=== PATIENT | female | born 1980 | race Caucasian/White ===

== ENCOUNTER 2018-10-06 20:37 | Observation (INO) | payer MEDICAID ==
[~2018-10-06] VITALS: Ht 172.7 cm; Wt 88.5 kg
[2018-10-06 21:00] LABS: BILIRUBIN,URINE NEGATIVE (NEG); CLARITY,URINE CLEAR; COLOR,URINE ORANGE; NITRITE,URINE POSITIVE (NEG); PROTEIN,URINE NEGATIVE (NEG-TRACE)
[2018-10-06 21:13] LABS: BACTERIA,URINE MANY /HPF (0-FEW); RBC,URINE OCC /HPF (0-2); SQUAMOUS EPITHELIAL CELL,UR FEW /LPF; WBC,URINE TNTC /HPF (0-4)
[2018-10-06] MEDS ORDERED: fentaNYL PF VIAL 100 MCG/2 ML VIAL IV ONE (22:00)
[2018-10-06] MEDS ORDERED: cefTRIAXone IV Push 1 GM VIAL. IVP ONE (22:00)
[2018-10-06] MEDS ORDERED: IV NORMAL SALINE 1000ML BAG 1,000 ML IV ONE (22:00)
[2018-10-06 22:26] LABS: BASO # 0.1 x10^3/uL (0.0-0.2); BASO % 2 % (0-3); EOS # 0.2 x10^3/uL (0.0-0.7); EOS % 2 % (0-3); HEMATOCRIT 38.5 % (36.0-47.0); HEMOGLOBIN 13.2 g/dL (12.0-15.5); LYMPH # 2.8 x10^3/uL (1.0-4.8); LYMPH % 28 % (24-48); MEAN CORPUSCULAR HEMOGLOBIN 30 pg (25-35); MEAN CORPUSCULAR HGB CONC 34 g/dL (31-37); MEAN CORPUSCULAR VOLUME 86 fL (79-100); MONO # 0.7 x10^3/uL (0.0-1.1); MONO % 7 % (0-9); NEUT # 6.2 x10^3uL (1.8-7.7); NEUT % 62 % (31-73); PLATELET COUNT 256 x10^3/uL (140-400); RED BLOOD COUNT 4.48 x10^6/uL (3.50-5.40); RED CELL DISTRIBUTION WIDTH 12.7 % (11.5-14.5)
[2018-10-06 22:34] LABS: CALCIUM 8.8 mg/dL (8.5-10.1); CREATININE 0.6 mg/dL (0.6-1.0); GFR 111.9; POTASSIUM 4.2 mmol/L (3.5-5.1)
--- NOTE | 2018-10-06 22:38 | PHYS DOC ---
Past Medical History Past Medical History: No Pertinent History Additional Past Medical Histor: heart blockage Past Surgical History: Alcohol Use: None Drug Use: None Adult General Chief Complaint Chief Complaint: PAIN ON URINATION HPI HPI 37-year-old female presents to ER via POV with complaints of urinary symptoms which started today. Patient reports she has had dysuria and states she has had previous UTIs and her symptoms are similar. Patient denies any fever, nausea or vomiting, or hematuria. She reports she has had 4 episodes of diarrhea today and has abdominal distention. Patient states she has taken Tylenol and over-the- counter Azo with minimal relief in symptoms. Patient states she did go on a car trip to [place] and just returned on Thursday. She denies any other family members with similar illness. Review of Systems Review of Systems Constitutional: Denies fever or chills [] Eyes: Denies change in visual acuity, redness, or eye pain [] HENT: Denies nasal congestion or sore throat [] Respiratory: Denies cough or shortness of breath [] Cardiovascular: Denies chest pain or palpitations GI: Denies nausea, vomiting, bloody stools or diarrhea. Reports abdominal distention : Denies hematuria. Reports dysuria Musculoskeletal: Denies joint pain. Reports lower back pain intermittently throughout today Integument: Denies rash, swelling or skin lesions [] Neurologic: Denies headache, focal weakness or sensory changes [] Endocrine: Denies polyuria or polydipsia [] All other systems were reviewed and found to be within normal limits, except as documented in this note. Current Medications Current Medications Current Medications Medications (Trade) Dose Ordered Sig/Kevin Start Time Stop Time Status Last Admin Dose Admin Ceftriaxone Sodium (Rocephin) 1 gm 1X ONCE 10/06/18 22:00 10/06/18 22:01 DC 10/06/18 22:21 1 GM Diphenhydramine HCl (Benadryl) 50 mg STK-MED ONCE 10/06/18 23:19 10/06/18 23:20 DC Epinephrine HCl (Adrenalin) 0.3 mg 1X ONCE 10/07/18 00:15 10/07/18 00:16 DC 10/07/18 00:01 0.3 MG Famotidine (Pepcid Vial) 40 mg 1X ONCE 10/06/18 23:30 10/06/18 23:31 DC 10/06/18 23:10 40 MG Fentanyl Citrate (Fentanyl 2ml Vial) 25 mcg 1X ONCE 10/06/18 22:00 10/06/18 22:01 DC 10/06/18 22:21 25 MCG Info (CONTRAST GIVEN -- Rx MONITORING) 1 each PRN DAILY PRN 10/06/18 22:45 10/07/18 10:26 DC Iohexol (Omnipaque 300 Mg/ml) 75 ml 1X ONCE 10/06/18 23:00 10/06/18 23:01 DC 10/06/18 23:08 75 ML Methylprednisolone Sodium Succinate (SOLU-Medrol 125MG VIAL) 125 mg 1X ONCE 10/06/18 23:30 10/06/18 23:31 DC 10/06/18 23:10 125 MG Sodium Chloride 1,000 ml @ 1,000 mls/hr 1X ONCE 10/06/18 22:00 10/06/18 22:59 DC 10/06/18 22:22 1,000 MLS/HR Allergies Allergies Allergies Coded Allergies Type Severity Reaction Last Updated Verified Iodinated Contrast- Oral and IV Dye Allergy Severe 10/07/18 Yes Physical Exam Physical Exam Constitutional: Well developed, well nourished, mild distress on initial exam, non-toxic appearance. [] HENT: Normocephalic, atraumatic, oropharynx moist, nose normal. [] Eyes: Pupils equal, conjunctiva normal, no discharge. [] Neck: Normal range of motion, no tenderness, supple, no stridor. [] Cardiovascular: Heart rate regular rhythm, no murmur [] Lungs & Thorax: Bilateral breath sounds clear to auscultation. Resp. equal/ nonlabored Abdomen: Bowel sounds normal, soft- distended, diffuse tenderness in all abd, no rebound tenderness, no masses, no pulsatile masses. [] Skin: Warm, dry, no erythema, no rash. [] Back: No tenderness, bilat. CVA tenderness Extremities: No tenderness, no cyanosis, no clubbing, ROM intact, no edema. [] Neurologic: Alert and oriented X 3, normal motor function, normal sensory function, no focal deficits noted. [] Psychologic: Affect normal, judgement normal, mood normal. [] Current Patient Data Vital Signs Vital Signs Date Time Temp Pulse Resp B/P (MAP) Pulse Ox O2 Delivery O2 Flow Rate FiO2 10/07/18 00:19 92 103/52 (69) 98 10/06/18 22:21 18 10/06/18 20:51 98.7 Room Air 98.7 Lab Values Laboratory Tests Test 10/06/18 20:40 10/06/18 20:44 10/06/18 21:15 Urine Collection Type Void Urine Color [place] Urine Clarity Clear Urine pH 5.0 Urine Specific [place] 1.015 Urine Protein Negative mg/dL (NEG-TRACE) Urine Glucose (UA) Negative mg/dL (NEG) Urine Ketones (Stick) Trace mg/dL (NEG) Urine Blood Trace (NEG) Urine Nitrite Positive (NEG) Urine Bilirubin Negative (NEG) Urine Urobilinogen Dipstick 1.0 mg/dL (0.2 mg/dL) Urine Leukocyte Esterase Large (NEG) Urine RBC Occ /HPF (0-2) Urine WBC Tntc /HPF (0-4) Urine Squamous Epithelial Cells Few /LPF Urine Bacteria Many /HPF (0-FEW) Urine Mucus Slight /LPF POC Urine HCG, Qualitative Hcg negative (Negative) White Blood Count 10.0 x10^3/uL (4.0-11.0) Red Blood Count 4.48 x10^6/uL (3.50-5.40) Hemoglobin 13.2 g/dL (12.0-15.5) Hematocrit 38.5 % (36.0-47.0) Mean Corpuscular Volume 86 fL (79-100) Mean Corpuscular Hemoglobin 30 pg (25-35) Mean Corpuscular Hemoglobin Concent 34 g/dL (31-37) Red Cell Distribution Width 12.7 % (11.5-14.5) Platelet Count 256 x10^3/uL (140-400) Neutrophils (%) (Auto) 62 % (31-73) Lymphocytes (%) (Auto) 28 % (24-48) Monocytes (%) (Auto) 7 % (0-9) Eosinophils (%) (Auto) 2 % (0-3) Basophils (%) (Auto) 2 % (0-3) Neutrophils # (Auto) 6.2 x10^3uL (1.8-7.7) Lymphocytes # (Auto) 2.8 x10^3/uL (1.0-4.8) Monocytes # (Auto) 0.7 x10^3/uL (0.0-1.1) Eosinophils # (Auto) 0.2 x10^3/uL (0.0-0.7) Basophils # (Auto) 0.1 x10^3/uL (0.0-0.2) Sodium Level 138 mmol/L (136-145) Potassium Level 4.2 mmol/L (3.5-5.1) Chloride Level 102 mmol/L (98-107) Carbon Dioxide Level 30 mmol/L (21-32) Anion Gap 6 (6-14) Blood Urea Nitrogen 13 mg/dL (7-20) Creatinine 0.6 mg/dL (0.6-1.0) Estimated GFR (Cockcroft-Gault) 111.9 BUN/Creatinine Ratio 22 (6-20) H Glucose Level 103 mg/dL (70-99) H Calcium Level 8.8 mg/dL (8.5-10.1) Total Bilirubin 0.6 mg/dL (0.2-1.0) Aspartate Amino Transferase (AST) 22 U/L (15-37) Alanine Aminotransferase (ALT) 39 U/L (14-59) Alkaline Phosphatase 57 U/L (46-116) Total Protein 7.2 g/dL (6.4-8.2) Albumin 3.2 g/dL (3.4-5.0) L Albumin/Globulin Ratio 0.8 (1.0-1.7) L Lipase 290 U/L (73-393) Laboratory Tests 10/06/18 21:15 Laboratory Tests 10/06/18 21:15 Microbiology 10/06/18 Urine Culture - Final, Complete 10/06/18 Urine Culture Result 1 (JOSE) - Final, Complete 10/06/18 Antimicrobic Susceptibility - Final, Complete EKG EKG [] Radiology/Procedures Radiology/Procedures []PROCEDURE: CT ABD PELV W/ IV CONTRST ONLY CT study of the abdomen and pelvis with contrast Clinical indications: Pain on urination for one day. Diarrhea. Abdominal distention. TECHNIQUE: After IV infusion of 75 cc of Omnipaque 300, helical CT scanning of the abdomen and pelvis was performed. No GI contrast was administered. This may decrease the sensitivity to detect GI tract pathology. PQRS compliance Statement One or more of the following individualized dose reduction techniques were utilized for this study: 1. Automated exposure control 2. Adjustment of the mA and/or kV according to patient size 3. Use of iterative reconstruction technique COMPARISON: None available. FINDINGS: The liver and spleen and pancreas and gallbladder are unremarkable. No extra hepatic biliary ductal dilatation is seen. There is patient motion artifact related to the patient vomiting. No adrenal mass is evident. Both kidneys are normal without hydronephrosis or hydroureter. Urinary bladder is not abnormally distended. No focal aneurysmal dilatation of the abdominal aorta is seen. No enlarged abdominal or pelvic lymphadenopathy is seen. No uterine mass or fibroid is seen. No dominant ovarian cyst or mass is seen. Fluid-filled nondilated loops of small bowel are seen with wall thickening involving the jejunum and the duodenum. Findings are consistent with enteritis. No obstructive bowel pattern is evident. The appendix is normal. No free fluid or free air or mesenteric edema is evident. Small hiatal hernia is evident. No lung base consolidation is evident. No lytic process is seen. IMPRESSION: Fluid-filled nondilated small bowel loops are seen proximally involving the jejunum with wall enhancement. This includes the duodenum. This may be seen with enteritis. Electronically signed by: Tracie Garcia MD (10/06/2018 11:38 PM) [facility] DICTATED and SIGNED BY: TRACIE GARCIA MD DATE: 10/06/18 0437 Course & Med Decision Making Course & Med Decision Making Pertinent Labs and Imaging studies reviewed. (See chart for details) Patient with a ER for complaints of urinary symptoms which started today. Patient was found at have large leukocytes positive nitrates with trace ketones and blood in her urine and UCG was negative. On further exam patient reports she has had abdominal distention with multiple episodes of diarrhea and so labs and CT are being obtained. Patient will be given IV fluids with dose of pain medication. Will provide patient with IV Rocephin for UTI while in the ER. 2305: While in the CT patient was given IV contrast and had severe reaction with endoscopy technician reporting complaints of shortness of air with episode of vomiting. Patient returned back to room 21 and had facial swelling, hives on throat and bilateral upper extremities, and pharyngeal swelling. Uvula was midline and visible but did have erythema and swelling. Patient was anxious with labored respirations. Auscultation by Dr. Oropeza and she has good air movement in bilateral lung lara. O2 saturation on room air 99% with heart rate 120s. Patient had IV fluids infusing and RN was at bedside to administer Benadryl 25 mg, Solu Medrol 125mg, and Pepcid IV 20mg. O2 was applied via nasal cannula at 2 L. After approximate five-minute timeframe patient had improvement in lip swelling and heart rate improved to 105. Patient states her breathing had improved somewhat although she does remain anxious with labored respirations. Patient was placed on ammonia solution preparer upon returning to the room. Pt's radub. is at bedside providing emotional support. 2320: Patient is still feeling short of air and does continue to have pharyngeal swelling. She has had improved swelling in her lips and hives have improved. Will provide additional dose of 25 mg Benadryl and 20 mg Pepcid. Heart rate 91 with O2 saturation 98% on 2 L. She is reporting symptoms have improved since initial onset. 2350: She was ambulated to the bathroom and return to the room having increased shortness of air. On reexamination patient has increased swelling to bilateral upper eyelids. Patient has labored breathing and does have less air movement in bilateral lung lara. Patient returned to room and was placed on monitor she remains sinus rhythm at a rate of 91. O2 saturation 98% on 2 L. Patient's case was discussed with Dr. Oropeza. Patient will receive epinephrine 0.3 mg IM. Discussed admission for continued monitoring as patient's symptoms have persisted. Patient is agreeable with this plan. Will admit to hospitalist services to [facility] telemetry for further care and monitoring. CT results showed probable enteritis this was discussed with patient and her . Patient did also reports she felt nauseous after receiving IV Rocephin however denies having any type of shortness of air or throat swelling after receiving that medication. Patient states when she received the IV contrast she felt warm and flushed throughout her entire body and then had the sudden onset of shortness of air, swelling in throat and face, and difficulty breathing. Dragon Disclaimer Dragon Disclaimer This electronic medical record was generated, in whole or in part, using a voice recognition dictation system. Departure Departure Impression: Primary Impression: Allergic reaction Additional Impressions: Abdominal pain Urinary tract infection Disposition: 09 ADMITTED INPATIENT Admitting Physician: Sabi Kang Condition: STABLE Referrals: NO PCP (PCP) Scripts Albuterol Sulfate (PROAIR HFA INHALER) 8.5 Gm Hfa.aer.ad 1 PUFF INH PRN Q6HRS PRN for asthma, #1 INHALER 0 Refills Prov: SABI KANG MD 10/07/18 Cephalexin (KEFLEX) 250 Mg Capsule 1 CAP PO TID for UTI, #21 CAP Prov: SABI KANG MD 10/07/18 Problem Qualifiers REFJESS VIEYRA APRN Oct 06, 2018 22:38
[2018-10-06 22:40] LABS: ALBUMIN 3.2 g/dL (3.4-5.0); ALBUMIN/GLOBULIN RATIO 0.8 (1.0-1.7); TOTAL BILIRUBIN 0.6 mg/dL (0.2-1.0); TOTAL PROTEIN 7.2 g/dL (6.4-8.2)
[2018-10-06] MEDS ORDERED: CONTRAST GIVEN. MC PRN (22:45)
[2018-10-06] MEDS ORDERED: IOHEXOL 300 MG/ML 100ML VIAL. IV ONE (23:00)
[2018-10-06] MEDS ORDERED: methylPREDNISolone SOD SUCC PF 125 MG/2 ML VIAL. ONE (23:04)
[2018-10-06] MEDS ORDERED: EPINEPHrine 1 MG/ML VIAL ONE (23:04)
[2018-10-06] MEDS ORDERED: FAMOTIDINE 20 MG/2 ML VIAL ONE ×2 (23:04→23:16)
[2018-10-06] MEDS ORDERED: diphenhydrAMINE 50 MG/ML VIAL ONE ×2 (23:04→23:19)
[2018-10-06] MEDS ORDERED: methylPREDNISolone SOD SUCC PF 125 MG/2 ML VIAL. IV ONE (23:30)
[2018-10-06] MEDS ORDERED: FAMOTIDINE 20 MG/2 ML VIAL IVP ONE (23:30)
[2018-10-06] MEDS ORDERED: diphenhydrAMINE 50 MG/ML VIAL IVP ONE (23:30)
--- NOTE | 2018-10-06 23:41 | RAD ---
CT study of the abdomen and pelvis with contrast Clinical indications: Pain on urination for one day. Diarrhea. Abdominal distention. TECHNIQUE: After IV infusion of 75 cc of Omnipaque 300, helical CT scanning of the abdomen and pelvis was performed. No GI contrast was administered. This may decrease the sensitivity to detect GI tract pathology. PQRS compliance Statement One or more of the following individualized dose reduction techniques were utilized for this study: 1. Automated exposure control 2. Adjustment of the mA and/or kV according to patient size 3. Use of iterative reconstruction technique COMPARISON: None available. FINDINGS: The liver and spleen and pancreas and gallbladder are unremarkable. No extra hepatic biliary ductal dilatation is seen. There is patient motion artifact related to the patient vomiting. No adrenal mass is evident. Both kidneys are normal without hydronephrosis or hydroureter. Urinary bladder is not abnormally distended. No focal aneurysmal dilatation of the abdominal aorta is seen. No enlarged abdominal or pelvic lymphadenopathy is seen. No uterine mass or fibroid is seen. No dominant ovarian cyst or mass is seen. Fluid-filled nondilated loops of small bowel are seen with wall thickening involving the jejunum and the duodenum. Findings are consistent with enteritis. No obstructive bowel pattern is evident. The appendix is normal. No free fluid or free air or mesenteric edema is evident. Small hiatal hernia is evident. No lung base consolidation is evident. No lytic process is seen. IMPRESSION: Fluid-filled nondilated small bowel loops are seen proximally involving the jejunum with wall enhancement. This includes the duodenum. This may be seen with enteritis. Electronically signed by: Sabas Garcia MD (10/06/2018 11:38 PM) [facility]
[2018-10-07] MEDS ORDERED: EPINEPHrine 1 MG/ML VIAL IM ONE (00:15)
[2018-10-07] MEDS ORDERED: diphenhydrAMINE 50 MG/ML VIAL IVP PRN (01:00)
[2018-10-07] MEDS ORDERED: IV NORMAL SALINE 1000ML BAG 1,000 ML IV SCH (01:00)
[2018-10-07] MEDS ORDERED: fentaNYL PF VIAL 100 MCG/2 ML VIAL IV ONE (01:00)
[2018-10-07] MEDS ORDERED: ONDANSETRON PF 4 MG/2 ML VIAL. IV PRN (01:00)
[2018-10-07] MEDS ORDERED: MORPHINE SULFATE 4 MG/ML VIAL. IV PRN (01:00)
[2018-10-07 01:30] VITALS: BP 116/55
[2018-10-07 03:01] VITALS: BP 109/55
[2018-10-07] MEDS ORDERED: methylPREDNISolone SOD SUCC PF 125 MG/2 ML VIAL. IV SCH (06:00)
[2018-10-07 07:28] VITALS: BP 126/68
[2018-10-07] MEDS ORDERED: ALBU2.5V8 INH (08:53)
[2018-10-07] MEDS ORDERED: CEPH-263 PO (08:53)
--- NOTE | 2018-10-07 08:58 | PDOC1 ---
History and Physical Date of Admission Date of Admission DATE: 10/07/18 TIME: 08:54 Source Source: Chart review, Patient History of Present Illness History of Present Illness Ms. Louis is a 37-year-old female admit overnight after marked allergic reaction to IV contrast in the ER. She presented with urinary symptoms and pain. Diarrhea x3, which has resolved. She has abd distention and pain, contrast given, and marked dyspnea, anxiety, swelling and redness, epi, solumedrol and pepcid given. She feels well this AM, abd distention is gone, no stools since last night, sheis eating clears and wants more food and wants to DC home. flank pain is gong she just moved here from [place] with her fiance. Past Medical History Cardiovascular: No pertinent hx Pulmonary: Asthma GI: No pertinent hx Psych: No pertinent hx Rheumatologic: No pertinent hx Family History Family History: No Significant Social History Smoke: 1 pack per day ALCOHOL: rare Drugs: None Current Problem List Problem List Problems Medical Problems: (1) Abdominal pain Status: Acute (2) Allergic reaction Status: Acute (3) Urinary tract infection Status: Acute Current Medications Current Medications Current Medications Fentanyl Citrate (Fentanyl 2ml Vial) 25 mcg 1X ONCE IV Last administered on at 22:21; Start 10/06/18 at 22:00; Stop 10/06/18 at 22:01; Status DC Sodium Chloride 1,000 ml @ 1,000 mls/hr 1X ONCE IV Last administered on at 22:22; Start 10/06/18 at 22:00; Stop 10/06/18 at 22:59; Status DC Ceftriaxone Sodium (Rocephin) 1 gm 1X ONCE IVP Last administered on 10/06/18at 22:21; Start 10/06/18 at 22:00; Stop 10/06/18 at 22:01; Status DC Iohexol (Omnipaque 300 Mg/ml) 75 ml 1X ONCE IV Last administered on 10/06/18at 23:08; Start 10/06/18 at 23:00; Stop 10/06/18 at 23:01; Status DC Info (CONTRAST GIVEN -- Rx MONITORING) 1 each PRN DAILY PRN MC SEE COMMENTS; Start 10/06/18 at 22:45; Stop 10/08/18 at 22:44 Diphenhydramine HCl (Benadryl) 50 mg STK-MED ONCE .ROUTE ; Start 10/06/18 at 23: 04; Stop 10/06/18 at 23:05; Status DC Famotidine (Pepcid Vial) 20 mg STK-MED ONCE .ROUTE ; Start 10/06/18 at 23:04; Stop 10/06/18 at 23:05; Status DC Epinephrine HCl (Adrenalin) 1 mg STK-MED ONCE .ROUTE ; Start 10/06/18 at 23:04; Stop 10/06/18 at 23:05; Status DC Methylprednisolone Sodium Succinate (SOLU-Medrol 125MG VIAL) 125 mg STK-MED ONCE .ROUTE ; Start 10/06/18 at 23:04; Stop 10/06/18 at 23:05; Status DC Famotidine (Pepcid Vial) 20 mg STK-MED ONCE .ROUTE ; Start 10/06/18 at 23:16; Stop 10/06/18 at 23:17; Status DC Diphenhydramine HCl (Benadryl) 50 mg 1X ONCE IVP Last administered on at 23:08; Start 10/06/18 at 23:30; Stop 10/06/18 at 23:31; Status DC Famotidine (Pepcid Vial) 40 mg 1X ONCE IVP Last administered on 10/06/18at 23: 10; Start 10/06/18 at 23:30; Stop 10/06/18 at 23:31; Status DC Methylprednisolone Sodium Succinate (SOLU-Medrol 125MG VIAL) 125 mg 1X ONCE IV Last administered on 10/06/18at 23:10; Start 10/06/18 at 23:30; Stop 10/06/18 at 23:31; Status DC Diphenhydramine HCl (Benadryl) 50 mg STK-MED ONCE .ROUTE ; Start 10/06/18 at 23: 19; Stop 10/06/18 at 23:20; Status DC Epinephrine HCl (Adrenalin) 0.3 mg 1X ONCE IM Last administered on 10/07/18at 00:01; Start 10/07/18 at 00:15; Stop 10/07/18 at 00:16; Status DC Fentanyl Citrate (Fentanyl 2ml Vial) 25 mcg 1X ONCE IV Last administered on at 00:36; Start 10/07/18 at 01:00; Stop 10/07/18 at 01:01; Status DC Ondansetron HCl (Zofran) 4 mg PRN Q8HRS PRN IV NAUSEA/VOMITING 1ST CHOICE; Start 10/07/18 at 01:00; Stop 10/08/18 at 00:59 Morphine Sulfate (Morphine Sulfate) 4 mg PRN Q2HR PRN IV SEVERE PAIN; Start at 01:00; Stop 10/08/18 at 00:59 Sodium Chloride 1,000 ml @ 100 mls/hr Q10H IV Last administered on 10/07/18at 02:16; Start 10/07/18 at 01:00; Stop 10/08/18 at 00:59 Diphenhydramine HCl (Benadryl) 50 mg PRN Q4HRS PRN IVP ALLERGIES; Start at 01:00 Methylprednisolone Sodium Succinate (SOLU-Medrol 125MG VIAL) 125 mg Q6HRS IV Last administered on 10/07/18at 05:39; Start 10/07/18 at 06:00 Active Scripts Active Proair Hfa Inhaler (Albuterol Sulfate) 8.5 Gm Hfa.aer.ad 1 Puff INH PRN Q6HRS PRN Keflex (Cephalexin) 250 Mg Capsule 1 Cap PO TID Reported No Known Medications Prior To Admisstion (Info) Each 1 Each DAILY Allergies Allergies: Coded Allergies: Iodinated Contrast- Oral and IV Dye (Verified Allergy, Severe, 10/07/18) ROS General: No: Chills, Night Sweats, Fatigue, Malaise, Appetite, Other PSYCHOLOGICAL ROS: No: Anxiety, Behavioral Disorder, Concentration difficultie , Decreased libido, Depression, Disorientation, Hallucinations, Hostility, Irritablity, Memory difficulties, Mood Swings, Obsessive thoughts, Physical abuse, Sexual abuse, Sleep disturbances, Suicidal ideation, Other Eyes: No Blurry vision, No Decreased vision, No Double vision, No Dry eyes, No Excessive tearing, No Eye Pain, No Itchy Eyes, No Loss of vision, No Photophobia , No Scotomata, No Uses contacts, No Uses glasses, No Other Respiratory: No: Cough, Hemoptysis, Orthopnea, Pleuritic Pain, Shortness of breath, SOB with excertion, Sputum Changes, Stridor, Tachypnea, Wheezing, Other Cardiovascular: No Chest Pain, No Palpitations, No Orthopnea, No Paroxysmal Noc. Dyspnea, No Edema, No Lt Headedness, No Other Gastrointestinal: Yes Nausea, Yes Abdominal Pain, Yes Diarrhea; No Vomiting, No Constipation, No Melena, No Hematochezia, No Other Genitourinary: No Dysuria, No Frequency, No Incontinence, No Hematuria, No Retention, No Discharge, No Urgency, No Pain, No Flank Pain, No Other, No , No , No , No , No , No , No Musculoskeletal: No Gait Disturbance, No Joint Pain, No Joint Stiffness, No Joint Swelling, No Muscle Pain, No Muscular Weakness, No Pain In:, No Swelling In:, No Other Neurological: No Behavorial Changes, No Bowel/Bladder ControlChng, No Confusion , No Dizziness, No Gait Disturbance, No Headaches, No Impaired Coord/balance, No Memory Loss, No Numbness/Tingling, No Seizures, No Speech Problems, No Tremors, No Visual Changes, No Weakness, No Other Skin: Yes Dry Skin; No Eczema, No Hair Changes, No Lumps, No Mole Changes, No Mottling, No Nail Changes, No Pruritus, No Rash, No Skin Lesion Changes, No Other, No Acne Physical Exam General: Alert, Oriented X3, Cooperative, No acute distress HEENT: Atraumatic, PERRLA, EOMI, Mucous membr. moist/pink Lungs: Clear to auscultation, Normal air movement Heart: no gallops Abdomen: Normal bowel sounds, Soft, No tenderness Rectal Exam: not examined Extremities: No clubbing, No edema, Normal pulses Skin: No rashes Neuro: Sensation intact, Cranial nerves 3-12 NL Psych/Mental Status: Mood NL Vitals Vitals Vital Signs Date Time Temp Pulse Resp B/P (MAP) Pulse Ox O2 Delivery O2 Flow Rate FiO2 10/07/18 07:28 98.2 87 16 126/68 (87) 95 Room Air 98.2 Labs Labs Laboratory Tests Test 10/06/18 20:40 10/06/18 20:44 10/06/18 21:15 Urine Collection Type Void Urine Color [place] Urine Clarity Clear Urine pH 5.0 Urine Specific [place] 1.015 Urine Protein Negative mg/dL (NEG-TRACE) Urine Glucose (UA) Negative mg/dL (NEG) Urine Ketones (Stick) Trace mg/dL (NEG) Urine Blood Trace (NEG) Urine Nitrite Positive (NEG) Urine Bilirubin Negative (NEG) Urine Urobilinogen Dipstick 1.0 mg/dL (0.2 mg/dL) Urine Leukocyte Esterase Large (NEG) Urine RBC Occ /HPF (0-2) Urine WBC Tntc /HPF (0-4) Urine Squamous Epithelial Cells Few /LPF Urine Bacteria Many /HPF (0-FEW) Urine Mucus Slight /LPF Bedside Urine HCG, Qualitative Hcg negative (Negative) White Blood Count 10.0 x10^3/uL (4.0-11.0) Red Blood Count 4.48 x10^6/uL (3.50-5.40) Hemoglobin 13.2 g/dL (12.0-15.5) Hematocrit 38.5 % (36.0-47.0) Mean Corpuscular Volume 86 fL (79-100) Mean Corpuscular Hemoglobin 30 pg (25-35) Mean Corpuscular Hemoglobin Concent 34 g/dL (31-37) Red Cell Distribution Width 12.7 % (11.5-14.5) Platelet Count 256 x10^3/uL (140-400) Neutrophils (%) (Auto) 62 % (31-73) Lymphocytes (%) (Auto) 28 % (24-48) Monocytes (%) (Auto) 7 % (0-9) Eosinophils (%) (Auto) 2 % (0-3) Basophils (%) (Auto) 2 % (0-3) Neutrophils # (Auto) 6.2 x10^3uL (1.8-7.7) Lymphocytes # (Auto) 2.8 x10^3/uL (1.0-4.8) Monocytes # (Auto) 0.7 x10^3/uL (0.0-1.1) Eosinophils # (Auto) 0.2 x10^3/uL (0.0-0.7) Basophils # (Auto) 0.1 x10^3/uL (0.0-0.2) Sodium Level 138 mmol/L (136-145) Potassium Level 4.2 mmol/L (3.5-5.1) Chloride Level 102 mmol/L (98-107) Carbon Dioxide Level 30 mmol/L (21-32) Anion Gap 6 (6-14) Blood Urea Nitrogen 13 mg/dL (7-20) Creatinine 0.6 mg/dL (0.6-1.0) Estimated GFR (Cockcroft-Gault) 111.9 BUN/Creatinine Ratio 22 (6-20) Glucose Level 103 mg/dL (70-99) Calcium Level 8.8 mg/dL (8.5-10.1) Total Bilirubin 0.6 mg/dL (0.2-1.0) Aspartate Amino Transf (AST/SGOT) 22 U/L (15-37) Alanine Aminotransferase (ALT/SGPT) 39 U/L (14-59) Alkaline Phosphatase 57 U/L (46-116) Total Protein 7.2 g/dL (6.4-8.2) Albumin 3.2 g/dL (3.4-5.0) Albumin/Globulin Ratio 0.8 (1.0-1.7) Lipase 290 U/L (73-393) Laboratory Tests Test 10/06/18 20:40 10/06/18 20:44 10/06/18 21:15 Urine Collection Type Void Urine Color [place] Urine Clarity Clear Urine pH 5.0 Urine Specific [place] 1.015 Urine Protein Negative mg/dL (NEG-TRACE) Urine Glucose (UA) Negative mg/dL (NEG) Urine Ketones (Stick) Trace mg/dL (NEG) Urine Blood Trace (NEG) Urine Nitrite Positive (NEG) Urine Bilirubin Negative (NEG) Urine Urobilinogen Dipstick 1.0 mg/dL (0.2 mg/dL) Urine Leukocyte Esterase Large (NEG) Urine RBC Occ /HPF (0-2) Urine WBC Tntc /HPF (0-4) Urine Squamous Epithelial Cells Few /LPF Urine Bacteria Many /HPF (0-FEW) Urine Mucus Slight /LPF Bedside Urine HCG, Qualitative Hcg negative (Negative) White Blood Count 10.0 x10^3/uL (4.0-11.0) Red Blood Count 4.48 x10^6/uL (3.50-5.40) Hemoglobin 13.2 g/dL (12.0-15.5) Hematocrit 38.5 % (36.0-47.0) Mean Corpuscular Volume 86 fL (79-100) Mean Corpuscular Hemoglobin 30 pg (25-35) Mean Corpuscular Hemoglobin Concent 34 g/dL (31-37) Red Cell Distribution Width 12.7 % (11.5-14.5) Platelet Count 256 x10^3/uL (140-400) Neutrophils (%) (Auto) 62 % (31-73) Lymphocytes (%) (Auto) 28 % (24-48) Monocytes (%) (Auto) 7 % (0-9) Eosinophils (%) (Auto) 2 % (0-3) Basophils (%) (Auto) 2 % (0-3) Neutrophils # (Auto) 6.2 x10^3uL (1.8-7.7) Lymphocytes # (Auto) 2.8 x10^3/uL (1.0-4.8) Monocytes # (Auto) 0.7 x10^3/uL (0.0-1.1) Eosinophils # (Auto) 0.2 x10^3/uL (0.0-0.7) Basophils # (Auto) 0.1 x10^3/uL (0.0-0.2) Sodium Level 138 mmol/L (136-145) Potassium Level 4.2 mmol/L (3.5-5.1) Chloride Level 102 mmol/L (98-107) Carbon Dioxide Level 30 mmol/L (21-32) Anion Gap 6 (6-14) Blood Urea Nitrogen 13 mg/dL (7-20) Creatinine 0.6 mg/dL (0.6-1.0) Estimated GFR (Cockcroft-Gault) 111.9 BUN/Creatinine Ratio 22 (6-20) Glucose Level 103 mg/dL (70-99) Calcium Level 8.8 mg/dL (8.5-10.1) Total Bilirubin 0.6 mg/dL (0.2-1.0) Aspartate Amino Transf (AST/SGOT) 22 U/L (15-37) Alanine Aminotransferase (ALT/SGPT) 39 U/L (14-59) Alkaline Phosphatase 57 U/L (46-116) Total Protein 7.2 g/dL (6.4-8.2) Albumin 3.2 g/dL (3.4-5.0) Albumin/Globulin Ratio 0.8 (1.0-1.7) Lipase 290 U/L (73-393) VTE Prophylaxis Ordered VTE Prophylaxis Devices: No VTE Pharmacological Prophylaxi: No Assessment/Plan Assessment/Plan UTI, flank pain. abd distention, acute viral enteritis, obesity, BMI 30 tobacco use disorder acute hypoxia in the ER last night, acute allergic reaction to contrast, better this AM, IN home asthma, chronic stable SABI KANG MD Oct 07, 2018 08:58
--- NOTE | 2018-10-07 09:00 | PDOC3 ---
Discharge Summary Visit Information Date of Admission: Oct 07, 2018 Date of Discharge: Oct 07, 2018 Admitting Diagnosis: abd pain, UTI Final Diagnosis acute hypoxia allergic reaction to contrast UTI asthma tobacco use disorder Problems Medical Problems: (1) Abdominal pain Status: Acute (2) Allergic reaction Status: Acute (3) Urinary tract infection Status: Acute Brief Hospital Course Allergies Allergies Coded Allergies Type Severity Reaction Last Updated Verified Iodinated Contrast- Oral and IV Dye Allergy Severe 10/07/18 Yes Vital Signs Vital Signs Date Time Temp Pulse Resp B/P (MAP) Pulse Ox O2 Delivery O2 Flow Rate FiO2 10/07/18 07:28 98.2 87 16 126/68 (87) 95 Room Air 98.2 Lab Results Laboratory Tests Test 10/06/18 20:40 10/06/18 20:44 10/06/18 21:15 Urine Collection Type Void Urine Color [place] Urine Clarity Clear Urine pH 5.0 Urine Specific [place] 1.015 Urine Protein Negative mg/dL (NEG-TRACE) Urine Glucose (UA) Negative mg/dL (NEG) Urine Ketones (Stick) Trace mg/dL (NEG) Urine Blood Trace (NEG) Urine Nitrite Positive (NEG) Urine Bilirubin Negative (NEG) Urine Urobilinogen Dipstick 1.0 mg/dL (0.2 mg/dL) Urine Leukocyte Esterase Large (NEG) Urine RBC Occ /HPF (0-2) Urine WBC Tntc /HPF (0-4) Urine Squamous Epithelial Cells Few /LPF Urine Bacteria Many /HPF (0-FEW) Urine Mucus Slight /LPF Bedside Urine HCG, Qualitative Hcg negative (Negative) White Blood Count 10.0 x10^3/uL (4.0-11.0) Red Blood Count 4.48 x10^6/uL (3.50-5.40) Hemoglobin 13.2 g/dL (12.0-15.5) Hematocrit 38.5 % (36.0-47.0) Mean Corpuscular Volume 86 fL (79-100) Mean Corpuscular Hemoglobin 30 pg (25-35) Mean Corpuscular Hemoglobin Concent 34 g/dL (31-37) Red Cell Distribution Width 12.7 % (11.5-14.5) Platelet Count 256 x10^3/uL (140-400) Neutrophils (%) (Auto) 62 % (31-73) Lymphocytes (%) (Auto) 28 % (24-48) Monocytes (%) (Auto) 7 % (0-9) Eosinophils (%) (Auto) 2 % (0-3) Basophils (%) (Auto) 2 % (0-3) Neutrophils # (Auto) 6.2 x10^3uL (1.8-7.7) Lymphocytes # (Auto) 2.8 x10^3/uL (1.0-4.8) Monocytes # (Auto) 0.7 x10^3/uL (0.0-1.1) Eosinophils # (Auto) 0.2 x10^3/uL (0.0-0.7) Basophils # (Auto) 0.1 x10^3/uL (0.0-0.2) Sodium Level 138 mmol/L (136-145) Potassium Level 4.2 mmol/L (3.5-5.1) Chloride Level 102 mmol/L (98-107) Carbon Dioxide Level 30 mmol/L (21-32) Anion Gap 6 (6-14) Blood Urea Nitrogen 13 mg/dL (7-20) Creatinine 0.6 mg/dL (0.6-1.0) Estimated GFR (Cockcroft-Gault) 111.9 BUN/Creatinine Ratio 22 (6-20) Glucose Level 103 mg/dL (70-99) Calcium Level 8.8 mg/dL (8.5-10.1) Total Bilirubin 0.6 mg/dL (0.2-1.0) Aspartate Amino Transf (AST/SGOT) 22 U/L (15-37) Alanine Aminotransferase (ALT/SGPT) 39 U/L (14-59) Alkaline Phosphatase 57 U/L (46-116) Total Protein 7.2 g/dL (6.4-8.2) Albumin 3.2 g/dL (3.4-5.0) Albumin/Globulin Ratio 0.8 (1.0-1.7) Lipase 290 U/L (73-393) Laboratory Tests Test 10/06/18 20:40 10/06/18 20:44 10/06/18 21:15 Urine Collection Type Void Urine Color [place] Urine Clarity Clear Urine pH 5.0 Urine Specific [place] 1.015 Urine Protein Negative mg/dL (NEG-TRACE) Urine Glucose (UA) Negative mg/dL (NEG) Urine Ketones (Stick) Trace mg/dL (NEG) Urine Blood Trace (NEG) Urine Nitrite Positive (NEG) Urine Bilirubin Negative (NEG) Urine Urobilinogen Dipstick 1.0 mg/dL (0.2 mg/dL) Urine Leukocyte Esterase Large (NEG) Urine RBC Occ /HPF (0-2) Urine WBC Tntc /HPF (0-4) Urine Squamous Epithelial Cells Few /LPF Urine Bacteria Many /HPF (0-FEW) Urine Mucus Slight /LPF Bedside Urine HCG, Qualitative Hcg negative (Negative) White Blood Count 10.0 x10^3/uL (4.0-11.0) Red Blood Count 4.48 x10^6/uL (3.50-5.40) Hemoglobin 13.2 g/dL (12.0-15.5) Hematocrit 38.5 % (36.0-47.0) Mean Corpuscular Volume 86 fL (79-100) Mean Corpuscular Hemoglobin 30 pg (25-35) Mean Corpuscular Hemoglobin Concent 34 g/dL (31-37) Red Cell Distribution Width 12.7 % (11.5-14.5) Platelet Count 256 x10^3/uL (140-400) Neutrophils (%) (Auto) 62 % (31-73) Lymphocytes (%) (Auto) 28 % (24-48) Monocytes (%) (Auto) 7 % (0-9) Eosinophils (%) (Auto) 2 % (0-3) Basophils (%) (Auto) 2 % (0-3) Neutrophils # (Auto) 6.2 x10^3uL (1.8-7.7) Lymphocytes # (Auto) 2.8 x10^3/uL (1.0-4.8) Monocytes # (Auto) 0.7 x10^3/uL (0.0-1.1) Eosinophils # (Auto) 0.2 x10^3/uL (0.0-0.7) Basophils # (Auto) 0.1 x10^3/uL (0.0-0.2) Sodium Level 138 mmol/L (136-145) Potassium Level 4.2 mmol/L (3.5-5.1) Chloride Level 102 mmol/L (98-107) Carbon Dioxide Level 30 mmol/L (21-32) Anion Gap 6 (6-14) Blood Urea Nitrogen 13 mg/dL (7-20) Creatinine 0.6 mg/dL (0.6-1.0) Estimated GFR (Cockcroft-Gault) 111.9 BUN/Creatinine Ratio 22 (6-20) Glucose Level 103 mg/dL (70-99) Calcium Level 8.8 mg/dL (8.5-10.1) Total Bilirubin 0.6 mg/dL (0.2-1.0) Aspartate Amino Transf (AST/SGOT) 22 U/L (15-37) Alanine Aminotransferase (ALT/SGPT) 39 U/L (14-59) Alkaline Phosphatase 57 U/L (46-116) Total Protein 7.2 g/dL (6.4-8.2) Albumin 3.2 g/dL (3.4-5.0) Albumin/Globulin Ratio 0.8 (1.0-1.7) Lipase 290 U/L (73-393) Brief Hospital Course Ms. Louis is a 37-year-old female admit overnight after marked allergic reaction to IV contrast in the ER. She presented with urinary symptoms and pain. Diarrhea x3, which has resolved. She has abd distention and pain, contrast given, and marked dyspnea, anxiety, swelling and redness, epi, solumedrol and pepcid given. She feels well this AM, abd distention is gone, no stools since last night, sheis eating clears and wants more food and wants to DC home. flank pain is gong she just moved here from [place] with her fiance. Discharge Information Condition at Discharge: Improved Follow Up: Weeks Disposition/Orders: D/C to Home Scheduled Cephalexin (Keflex) 250 Mg Capsule, 1 CAP PO TID for UTI, #21 Prescribed by: SABI KANG on 10/07/18852 Info (No Known Medications Prior To Admisstion) Each, 1 EACH MC DAILY for NO NEED, (Reported) Entered as Reported by: MANUELA LOPES on 10/07/18328 Last Action: New Order on 10/07/18328 by MANUELA LOPES Scheduled PRN Albuterol Sulfate (Proair Hfa Inhaler) 8.5 Gm Hfa.aer.ad, 1 PUFF INH PRN Q6HRS PRN for asthma, #1 Ref 0 Prescribed by: SABI KANG on 10/07/18852 Patient Instructions Patient Instructions A/d same day establish primary care here, get health screenings her asthma is stable at this time, , refill rescue inhaler - she uses 1-2 x per month SABI KANG MD Oct 07, 2018 09:00
--- NOTE | 2018-10-07 09:47 | NUR ---
Discharge Note: [facility] [address] [place] [address] Discharge instructions and discharge home medications reviewed with Patient and a copy given. All questions have been answered and understanding verbalized. The following instructions and handouts were given: Allergies and Anaphylaxis Discontinued lines and drains: 1 x PIV removed w/ tip intact Patient discharged to home w/ spouse
== END 2018-10-07 10:05 | disposition home or self-care (01) ==
LOC: ER 20:37 → 6 SOUTH 10-07 00:25
PROVIDERS: ADMIT Internal Medicine; ATTEND Internal Medicine
DX: N39.0 Urinary tract infection, site not specified (principal); R30.0 Dysuria; R19.7 Diarrhea, unspecified; R14.0 Abdominal distension (gaseous); T50.8X5A Adverse effect of diagnostic agents, initial encounter; F41.9 Anxiety disorder, unspecified; J45.909 Unspecified asthma, uncomplicated; F17.210 Nicotine dependence, cigarettes, uncomplicated; A08.4 Viral intestinal infection, unspecified; E66.9 Obesity, unspecified; Z68.30 Body mass index [BMI] 30.0-30.9, adult; R09.02 Hypoxemia
CPT/HCPCS: 36415; 74177; 80053; 81001; 81025; 83690; 85025; 87086; 96361; 96372; 96374; 96375; 96376; 99284; G0378; G0379; J0171; J0696; J1200; J2930; J3010; J3490; J7030; Q9967; 87186

== ENCOUNTER 2019-07-14 14:34 | Observation (INO) | payer BC ==
[~2019-07-14 14:34] MED LIST: ALBU2.5V8 INH; CEPH-263 PO
[2019-07-14] MEDS ORDERED: IV RINGERS,LACTATED 1000ML 1,000 ML IV SCH (14:37)
[2019-07-14] MEDS ORDERED: ONDANSETRON PF 4 MG/2 ML VIAL. IV PRN (14:45)
[2019-07-14] MEDS ORDERED: ACETAMINOPHEN 325 MG TABLET. PO PRN (14:45)
[2019-07-14] MEDS ORDERED: BETAMET ACET&NA PHOS 30 MG/5 ML VIAL. IM SCH (15:00)
[2019-07-14 15:01] LABS: BILIRUBIN,URINE NEGATIVE (NEG); CLARITY,URINE CLEAR; COLOR,URINE YELLOW; NITRITE,URINE NEGATIVE (NEG); PH,URINE 6.5; PROTEIN,URINE NEGATIVE (NEG-TRACE)
[2019-07-14 15:05] LABS: BARBITURATES NEG (NEG); BENZODIAZEPINES NEG (NEG); CANNABINOIDS NEG (NEG); COCAINE NEG (NEG); METHADONE NEG (NEG); OPIATES NEG (NEG); PHENCYCLIDINE NEG (NEG)
[2019-07-14 15:08] LABS: AMPHETAMINE/METHAMPHETAMINE NEG (NEG)
[2019-07-14 15:09] LABS: BACTERIA,URINE FEW /HPF (0-FEW); SQUAMOUS EPITHELIAL CELL,UR FEW /LPF; WBC,URINE RARE /HPF (0-4)
--- NOTE | 2019-07-14 16:07 | RAD ---
EXAM: OBSTETRIC ULTRASOUND. HISTORY: Vaginal bleeding in . COMPARISON: None. FINDINGS: Sonographic evaluation of the uterus, fetus and maternal pelvis was performed. There is a single fetus in vertex presentation. heart rate is 140 bpm. Estimated gestational age based on measurements is 33 weeks 4 days. Head circumference, biparietal diameter, abdominal circumference and femur length are commensurate. Estimated weight is 2241 g. The placenta is anterior. There is no evidence of placenta previa. No subchorionic collection is identified. Amniotic fluid volume appears normal with amniotic fluid index 14.6 cm. The cervix is obscured currently. The stomach and bladder are visualized. Images of the kidneys reveal no hydronephrosis. There is no evidence of hydrocephalus. The maternal adnexa are obscured by positioning currently. IMPRESSION: 1. Single fetus in vertex presentation. heart rate 140 bpm. Estimated gestational age based on measurements 33 weeks 4 days. Electronically signed by: Sunil Whitten MD (07/14/2019 4:04 PM) [facility]
[2019-07-14 16:09] LABS: BASO # 0.1 x10^3/uL (0.0-0.2); BASO % 1 % (0-3); EOS # 0.1 x10^3/uL (0.0-0.7); EOS % 2 % (0-3); HEMATOCRIT 28.8 % (36.0-47.0); LYMPH % 26 % (24-48); MEAN CORPUSCULAR HEMOGLOBIN 29 pg (25-35); MEAN CORPUSCULAR HGB CONC 35 g/dL (31-37); MEAN CORPUSCULAR VOLUME 84 fL (79-100); MONO # 0.5 x10^3/uL (0.0-1.1); MONO % 6 % (0-9); NEUT # 4.9 x10^3/uL (1.8-7.7); NEUT % 65 % (31-73); PLATELET COUNT 210 x10^3/uL (140-400); RED BLOOD COUNT 3.44 x10^6/uL (3.50-5.40); WHITE BLOOD COUNT 7.6 x10^3/uL (4.0-11.0)
[2019-07-14 16:24] LABS: CALCIUM 8.8 mg/dL (8.5-10.1); CREATININE 0.6 mg/dL (0.6-1.0); GFR 111.3; POTASSIUM 3.6 mmol/L (3.5-5.1)
[2019-07-14 16:31] LABS: ALBUMIN 2.4 g/dL (3.4-5.0); ALBUMIN/GLOBULIN RATIO 0.6 (1.0-1.7); TOTAL BILIRUBIN 0.5 mg/dL (0.2-1.0); TOTAL PROTEIN 6.5 g/dL (6.4-8.2)
== END 2019-07-14 16:34 | disposition home or self-care (01) ==
LOC: 3 SO LND 14:34
PROVIDERS: ADMIT Obstetrics & Gynecology; ATTEND Obstetrics & Gynecology
DX: O46.93 Antepartum hemorrhage, unspecified, third trimester (principal); Z3A.33 33 weeks gestation of pregnancy
CPT/HCPCS: 36415; 76815; 80053; 80307; 81001; 85025; 86850; 86900; 86901; G0378; G0379

== ENCOUNTER 2020-11-30 19:12 | Emergency (ER) | payer MEDICAID ==
[~2020-11-30] VITALS: Ht 167.6 cm; Wt 90.0 kg
[2020-11-30 19:46] VITALS: BP 128/74
[2020-11-30] MEDS ORDERED: RABIES VIRUS VACC PF 2.5 UNIT / 1 ML VIAL. VAX IM ONE (21:15)
[2020-11-30] MEDS ORDERED: RABIES IMMUNE GLOBULIN PF 300 UNIT/ML 5ML VIAL VAX IM ONE (21:15)
[2020-11-30] MEDS ORDERED: DIPH,PERTUSS(ACELL),TET VAC/PF 0.5 ML SYRINGE. VAX IM ONE (21:15)
[2020-11-30] MEDS ORDERED: HYDROcodone/APAP 5/325MG 1 TAB TABLET PO ONE (21:15)
--- NOTE | 2020-11-30 22:11 | RAD ---
Study: XR EXAM OF ANKLE_LEFT 3V Indication: Dog bite. Comparison: None. Findings: No acute fracture. Ankle alignment is within normal limits. No retained radiopaque foreign body. Ther e is some irregularity of the soft tissues at the lateral and dorsal ankle. Impression: No acute osseous abnormality or retained radiopaque foreign body. There are some soft tissue findings that would correlate with the provided history of a dog bite but poorly assessed by radiography. Electronically signed by: SANG HOLLIS MD (11/30/2020 10:09 PM) [facility]
--- NOTE | 2020-11-30 22:31 | ED.ADGEN ---
Past Medical History Past Medical History: Asthma Additional Past Medical Histor: heart blockage, HEP C Past Surgical History: Smoking Status: Current Every Day Smoker Alcohol Use: None Drug Use: None General Adult EDM: Chief Complaint: ANIMAL BITE HPI: HPI: Patient is a 40 year old female, accompanied by her , who presents to the department with complaints of a dog bite to the back of her right ankle. Patient states earlier this morning, around 8:30 AM, a pitbull bit her when she was walking home from taking her children to school. She states that she does not know who the dog belongs to the dog was not caught after he bit her. She reports that the animal was not foaming at the mouth but states that the dog seemed angry. She denies any numbness, tingling, or weakness of the affected extremity. Patient states her last tetanus shot was greater than 5 years ago. She currently rates her pain a 6 out of 10 on the pain scale, she reports the pain is worse with movement and palpation, she states that the pain is better with rest. Review of Systems: Review of Systems: Complete ROS is negative unless otherwise noted in HPI. Current Medications: Current Medications Medications (Trade) Dose Ordered Sig/Kevin Start Time Stop Time Status Last Admin Dose Admin Acetaminophen/ Hydrocodone Bitart (Lortab 5/325) 1 tab 1X ONCE 11/30/20 21:15 11/30/20 21:16 DC 11/30/20 22:41 1 TAB Diphtheria/ Tetanus/Acell Pertussis (ADACEL TDap SYRINGE) 0.5 ml ONCE ONCE 11/30/20 21:15 11/30/20 21:16 DC 11/30/20 22:37 0.5 ML Rabies Immune Globulin (HyperRAB 300 UNIT/ML 5ML VIAL) 6 ml ONCE ONCE 11/30/20 21:15 11/30/20 21:16 DC 11/30/20 22:36 6 ML Rabies Vaccine Human Diploid Cell (Imovax Rabies 2.5 Unit / ml) 1 ml ONCE ONCE 11/30/20 21:15 11/30/20 21:16 DC 11/30/20 22:41 1 ML Allergies: Allergies: Allergies Coded Allergies Type Severity Reaction Last Updated Verified Iodinated Contrast Media Allergy Severe 10/07/18 Yes Physical Exam: PE: See Above Constitutional: Well developed, well nourished, no acute distress, non-toxic appearance. [] HENT: Normocephalic, atraumatic, bilateral external ears normal, nose normal. [] Eyes: PERRLA, EOMI, conjunctiva normal, no discharge. [] Neck: Normal range of motion, no stridor. [] Cardiovascular:Heart rate regular rhythm Lungs & Thorax: Respirations even and unlabored, no retractions, no respiratory distress Skin: Warm, dry, no erythema, no rash; 2 cm superficial horizontal laceration/puncture wound to posterior lateral left ankle, no visible foreign body, no active bleeding, wound is not gaping, no surrounding erythema. [] Extremities: Left ankle: Posterior tenderness to palpation, no crepitus, no obvious deformity, sensation intact, full extension and flexion of the joint, no cyanosis, ROM intact, no edema. [] Neurologic: Alert and oriented X 3, normal motor, normal sensory, no focal deficits noted. [] Psychologic: Affect normal, judgement normal, mood normal. [] Current Patient Data: Vital Signs: Vital Signs Date Time Temp Pulse Resp B/P (MAP) Pulse Ox O2 Delivery O2 Flow Rate FiO2 11/30/20 22:41 98 11/30/20 19:46 98.1 82 12 128/74 (92) Room Air 98.1 EKG: EKG: [] Heart Score: C/O Chest Pain: No Risk Scores: Score 0 - 3: 2.5% MACE over next 6 weeks - Discharge Home Score 4 - 6: 20.3% MACE over next 6 weeks - Admit for Clinical Observation Score 7 - 10: 72.7% MACE over next 6 weeks - Early Invasive Strategies Radiology/Procedures: Radiology/Procedures: PROCEDURE: ANKLE LEFT 3V Study: XR EXAM OF ANKLE_LEFT 3V Indication: Dog bite. Comparison: None. Findings: No acute fracture. Ankle alignment is within normal limits. No retained radiopaque foreign body. There is some irregularity of the soft tissues at the lateral and dorsal ankle. Impression: No acute osseous abnormality or retained radiopaque foreign body. There are some soft tissue findings that would correlate with the provided history of a dog bite but poorly assessed by radiography. Electronically signed by: SANG HOLLIS MD (11/30/2020 10:09 PM) [facility] [] Course & Med Decision Making: Course & Med Decision Making Pertinent Labs and Imaging studies reviewed. (See chart for details) 40-year-old female presented to the emergency department for evaluation of a dog bite to her posterior left ankle. The patient states the dog was not captured and she did not call animal control to report the incident. X-ray revealed no acute findings. I infiltrated the wound with 2 mL of immunoglobulin, I then injected the remaining 4 mL of immunoglobulin into the patient's ventral gluteal areas ( 2ml in the LVG, and 2 ml in the RVG) tetanus immunization and rabies vaccine were administered by nursing staff. Prescriptions written for Augmentin and hydrocodone. I instructed the patient to follow up with the outpatient department at this hospital for the remaining rabies vaccines on days 3, 7, 14 Return to the emergency room if fever develops or symptoms worsen. Patient verbalized an understanding of home care, medications, follow-up, and return to ED instructions and was in agreement with the plan of care. [] Dragon Disclaimer: Dragon Disclaimer: This electronic medical record was generated, in whole or in part, using a voice recognition dictation system. Departure Departure Impression: Primary Impression: Dog bite of left ankle Additional Impressions: Need for Tdap vaccination Rabies, need for prophylactic vaccination against Disposition: 01 HOME / SELF CARE / HOMELESS Condition: STABLE Referrals: NO PCP (PCP) Patient Instructions: Animal Bite, [id number], Rabies Immune Globulin, human RIG solution for injection, Rabies Vaccine suspension for injection, VIS, Tetan us, Diphtheria (Td); Tetanus, Diphtheria, Pertussis (Tdap) - [facility] Additional Instructions: Fill the prescriptions and use them as directed. Return to the outpatient department at this hospital on Thursday, December 02, December 06, and December 13. Return to the ER sooner if fever develops or your symptoms worsen. Scripts Hydrocodone Bit/Acetaminophen (HYDROCODONE-APAP 5-325 ) 1 Tab Tablet 1 TAB PO PRN Q6HRS PRN for PAIN for 3 Days, #10 TAB 0 Refills Prov: NATALIA RODGERS APRN 11/30/20 Amoxicillin/Potassium Clav (AUGMENTIN 875-125 TABLET) 1 Each Tablet 1 TAB PO BID for 10 Days, #20 TAB 0 Refills Prov: NATALIA RODGERS APRN 11/30/20 Problem Qualifiers Primary Impression: Dog bite of left ankle Encounter type: initial encounter Qualified Codes: S91.052A - Open bite, left ankle, initial encounter; W54.0XXA - Bitten by dog, initial encounter NATALIA RODGERS CHIEF [employer]ER November 30, 2020 22:31
[2020-11-30] MEDS ORDERED: HYDR-2761 PO (23:00)
[2020-11-30] MEDS ORDERED: AMOX1TAB61 PO (23:00)
== END 2020-11-30 23:13 | disposition home or self-care (01) ==
LOC: ER 19:12
DX: S91.052A Open bite, left ankle, initial encounter (principal); J45.909 Unspecified asthma, uncomplicated; F17.200 Nicotine dependence, unspecified, uncomplicated; Z91.041 Radiographic dye allergy status; W54.0XXA Bitten by dog, initial encounter; Y92.89 Other specified places as the place of occurrence of the external cause; Y93.01 Activity, walking, marching and hiking; Y99.8 Other external cause status
CPT/HCPCS: 73610; 90375; 90471; 90675; 90715; 96372; 99284

== ENCOUNTER 2021-01-17 04:07 | Emergency (ER) | payer MEDICAID ==
[~2021-01-17] VITALS: Ht 167.6 cm; Wt 95.0 kg
[~2021-01-17 04:07] MED LIST changes: +AMOX1TAB61 PO; +HYDR-2761 PO
[2021-01-17 04:45] VITALS: BP 125/83
[2021-01-17] MEDS ORDERED: VENTOLIN HFA18 GM INH (04:50)
[2021-01-17] MEDS ORDERED: METH4TAB2 PO (04:50)
[2021-01-17] MEDS ORDERED: FLUT10.6 IH (04:50)
--- NOTE | 2021-01-17 04:51 | PHYS DOC ---
Past Medical History Past Medical History: Asthma Additional Past Medical Histor: heart blockage, HEP C Past Surgical History: Smoking Status: Current Every Day Smoker Alcohol Use: None Drug Use: None General Adult EDM: Chief Complaint: ASTHMA HPI: HPI: 40-year-old female who denies any significant past medical history presents to the ED with complaints of mild shortness of breath, stating she has run out her asthma inhaler. Has not established primary care. Review of Systems: Review of Systems: Constitutional: Denies fever or chills. [] Eyes: Denies change in visual acuity. [] HENT: Denies nasal congestion or sore throat. [] Respiratory: Denies cough or hemoptysis Cardiovascular: Denies chest pain or edema. [] GI: Denies abdominal pain, nausea, vomiting, : Denies dysuria or vaginal bleeding Musculoskeletal: Denies back pain or joint pain. [] Integument: Denies rash or diaphoresis Neurologic: Denies headache, focal weakness or sensory changes. [] Endocrine: Denies polyuria or polydipsia. [] Lymphatic: Denies swollen glands. [] Psychiatric: Denies depression or anxiety. [] Heart Score: C/O Chest Pain: No Risk Factors: Risk Factors: DM, Current or recent (<one month) smoker, HTN, HLP, family history of CAD, obesity. Risk Scores: Score 0 - 3: 2.5% MACE over next 6 weeks - Discharge Home Score 4 - 6: 20.3% MACE over next 6 weeks - Admit for Clinical Observation Score 7 - 10: 72.7% MACE over next 6 weeks - Early Invasive Strategies Allergies: Allergies: Allergies Coded Allergies Type Severity Reaction Last Updated Verified Iodinated Contrast Media Allergy Severe 10/07/18 Yes Physical Exam: PE: Constitutional: Well developed, well nourished, no acute distress, non-toxic appearance. HENT: Normocephalic, atraumatic, Eyes: EOMI, conjunctiva normal, no discharge. Neck: Normal range of motion, supple, Cardiovascular: S1/2 present, regular rhythm Lungs & Thorax: Speaking in full sentences, bilateral equal chest rise, no tachypnea or increased work of breathing, no wheeze/rales/crackles Abdomen: soft, no tenderness, Skin: Warm, dry, no erythema, no rash. [] Back: No tenderness, no CVA tenderness. [] Extremities: No tenderness, no cyanosis, no lower extremity edema Neurologic: Alert and oriented X 3, normal motor function, normal sensory function, no focal deficits noted. [] Psychologic: Affect normal, judgement normal, mood normal. [] Current Patient Data: Labs: Laboratory Tests Test 01/17/21 04:26 POC Urine HCG, Qualitative Hcg negative (Negative) Vital Signs: Vital Signs Date Time Temp Pulse Resp B/P (MAP) Pulse Ox O2 Delivery O2 Flow Rate FiO2 01/17/21 04:14 97.9 85 18 125/83 (97) 96 Room Air 97.9 EKG: EKG: [] Radiology/Procedures: Radiology/Procedures: [] Course & Med Decision Making: Course & Med Decision Making Pertinent Labs and Imaging studies reviewed. (See chart for details) Concern for asthma, encounter for medication refill. Patient with no respiratory distress, lower extremity swelling, increased work of breathing or fever. Will discharge home with strict ED return precautions were given for increased work of breathing, fever, strokelike symptoms, hemoptysis or leg swelling. Encouraged urgent outpatient follow-up with PMD and pulmonology for definitive management. Life-threatening processes were considered but are low suspicion at this time, given history, physical exam and ED workup. Pt was educated on all prescription medications and adverse effects. All patient's questions were answered and pt was stable at time of discharge. Life/limb-threatening differential includes but is not limited to, ACS, dysrhythmia, pneumothorax or hemothorax, pulmonary embolus, pneumonia, bronchoconstriction, pulmonary edema, angioedema, epiglottitis, tracheitis, Cyrus's angina, RPA/DOOR TRIMMER, anaphylaxis, angioedema, cardiac tamponade or murmurs, pericarditis, myocarditis, poisoning or toxicity, sepsis or autoimmune/neurologic disease. I spoken with the patient and her caregivers. I explained the patient's condition, diagnoses and treatment plan based on the information available to me at this time. I have answered the patient and her caregiver's questions and addressed any concerns. The patient and her caregivers have a good understanding of patient's diagnosis, condition and treatment plan as can be expected at this point. Vital signs have been stable. Patient's condition is stable and appropriate for discharge from the emergency department. Patient will pursue further outpatient evaluation with primary care physician or other designated or consulting physician as outlined in the discharge instructions. The patient and/or caregivers are agreeable to this plan of care and follow-up instructions have been explained in detail. The patient and/or caregivers have received these instructions in written form and have expressed an understanding of the discharge instructions. The patient and/or caregivers are aware that any significant change of condition or worsening of symptoms should prompt immediate return to this or the closest emergency department or call to 911. Gerardo Disclaimer: Gerardo Disclaimer: This electronic medical record was generated, in whole or in part, using a voice recognition dictation system. Departure Departure Impression: Primary Impression: Asthma Additional Impression: Encounter for medication refill Disposition: HOME / SELF CARE / HOMELESS Condition: STABLE Referrals: NO PCP (PCP) Follow-up with your primary care physician in 24 to 48 hours OR FOLLOW UP WITH FAMILY MEDICINE: [address], [address] [place] [address] Patient Instructions: Asthma, Adult, Medication Refill, Emergency Department Additional Instructions: FOLLOW UP WITH PULMONOLOGY: FOR DEFINITIVE MANAGEMENT [facility] [address] [place] [address] EMERGENCY DEPARTMENT GENERAL DISCHARGE INSTRUCTIONS Thank you for coming to [facility] Emergency Department (ED) today and trusting us with you care. We trust that you had a positive experience in our Emergency Department. If you wish to speak to the department management, you may call the Director at [phone]. YOUR FOLLOW UP INSTRUCTIONS ARE FOLLOWS: 1. Do you have a private Doctor? If you do not have a private doctor, please ask for a resource list of physicians or clinics that may be able to assist you with follow up care. 2. The Emergency Physicain has interpreted your x-rays. The X-Ray specialist will also review them. If there is a change in the findings, you will be notified in 48 hours when at all possible. 3. A lab test or culture has been done, your results will be reviewed and you will be notified if you need a change in treatment. ADDITIONAL INSTRUCTIONS AND INFORMATION: 1. Your care today has been supervised by a physician who is specially trained in emergency care. Many problems require more than one evaluation for a complete diagnosis and treatment. We recommend that you schedule your follow up appointment as recommended to ensure complete treatment of you illness or injury. If you are unable to obtain follow up care and continue to have a problem, or if your condition worsens, we recommend that you return to the ED. 2. We are not able to safely determine your condition over the phone nor are we able to give sound medical advice over the phone. For these safety reasons, if you call for medical advice we will ask you to come to the ED for further evaluation. 3. If you have any questions regarding these discharge instructions please call the ED at [phone]. SAFETY INFORMATION: In the interest of safety, wellness, and injury prevention; we encourage you to wear your sealbelt, if you smoke; quite smoking, and we encourage family to use a protective helmet for bicycling and other sporting events that present an increased risk for head injury. IF YOUR SYMPTOMS WORSEN OR NEW SYMPTOMS DEVELOP, OR YOU HAVE CONCERNS ABOUT YOUR CONDITION; OR IF YOUR CONDITION WORSENS WHILE YOU ARE WAITING FOR YOUR FOLLOW UP APPOINTMENT; EITHER CONTACT YOUR PRIMARY CARE DOCTOR, THE PHYSICIAN WHOSE NAME AND NUMBER YOU WERE GIVEN, OR RETURN TO THE ED IMMEDIATELY. Scripts Methylprednisolone (MEDROL) 4 Mg Tab.ds.pk 1 PKG PO UD for inflammation, #1 PKG Prov: JESS AUGUSTE DO 01/17/21 Fluticasone Propionate (FLOVENT 44MCG HFA) 10.6 Gm Aer.w.adap 2 PUFF IH BID, #10.6 GM 2 Refills Prov: JESS AUGUSTE DO 01/17/21 Albuterol Sulfate (VENTOLIN HFA INHALER) 18 Gm Hfa.aer.ad 2 PUFF INH QID for FOR ASTHMA, #1 INHALER 0 Refills Prov: JESS AUGUSTE DO 01/17/21 JESS AUGUSTE DO Jan 17, 2021 04:51
== END 2021-01-17 06:23 | disposition home or self-care (01) ==
LOC: ER 04:07
DX: J45.909 Unspecified asthma, uncomplicated (principal); Z76.0 Encounter for issue of repeat prescription; F17.200 Nicotine dependence, unspecified, uncomplicated; Z91.041 Radiographic dye allergy status
CPT/HCPCS: 81025; 99281; 99282; 99283

== ENCOUNTER 2021-08-22 14:50 | Emergency (ER) | payer MEDICAID ==
[~2021-08-22] VITALS: Ht 167.6 cm; Wt 104.5 kg
[~2021-08-22 14:50] MED LIST changes: +FLUT10.6 IH; +METH4TAB2 PO; +VENTOLIN HFA18 GM INH
[2021-08-22 15:01] VITALS: BP 106/53
--- NOTE | 2021-08-22 15:49 | PHYS DOC ---
Past Medical History Past Medical History: Asthma Additional Past Medical Histor: HEP C Past Surgical History: Smoking Status: Current Every Day Smoker Additional Information: 0.25 PPD Alcohol Use: None Drug Use: None General Adult EDM: Chief Complaint: MEDICATION REFILL HPI: HPI: Patient is a 40-year-old female presenting to the emergency department seeking a rescue inhaler. Patient states that she is having no symptoms at this time and recently moved to the area from [place] but has not been able to find a primary care provider since then. Patient is currently not in any acute distress and sitting comfortably in the chair. She states that her daughter is currently in the emergency department as well and figured this was a good time to be seen. Review of Systems: Review of Systems: Constitutional: Denies fever or chills Eyes: Denies redness or eye pain HENT: Denies nasal congestion or sore throat Respiratory: Denies cough or shortness of breath Cardiovascular: Denies chest pain or palpitations GI: Denies abdominal pain, nausea, or vomiting : Denies dysuria or hematuria Musculoskeletal: Denies back pain or joint pain Integument: Denies rash or skin lesions Neurologic: Denies headache, focal weakness or sensory changes Complete systems were reviewed and found to be within normal limits, except as documented in this note. Heart Score: C/O Chest Pain: N/A Allergies: Allergies: Allergies Coded Allergies Type Severity Reaction Last Updated Verified Iodinated Contrast Media Allergy Severe 10/07/18 Yes Physical Exam: PE: Constitutional: Well developed, well nourished, no acute distress, non-toxic appearance HENT: Normocephalic, atraumatic Eyes: conjunctiva normal, no discharge Neck: Normal range of motion, no tenderness, supple Lungs & Thorax: No respiratory distress, equal chest rise and fall. Clear to auscultation bilaterally Abdomen: Soft, no tenderness Skin: Warm, dry, no erythema, no rash Extremities: No tenderness, ROM intact, no edema Neurologic: Alert and oriented X 3, normal motor function, normal sensory function, no focal deficits noted Psychologic: Affect normal, judgment normal Current Patient Data: Vital Signs: Vital Signs Date Time Temp Pulse Resp B/P (MAP) Pulse Ox O2 Delivery O2 Flow Rate FiO2 08/22/21 15:01 97.7 80 19 106/53 (70) 95 Room Air 97.7 EKG: EKG: [] Radiology/Procedures: Radiology/Procedures: [] Course & Med Decision Making: Course & Med Decision Making Pertinent Labs and Imaging studies reviewed. (See chart for details) Patient came to the emergency department because she recently moved to the area and has not been able to find a primary care provider to refill her prescription for a rescue inhaler. She is not in any acute distress at this time. Patient stable for discharge with outpatient follow-up with PCP. Discussed findings and plan with patient, who acknowledges understanding and agreement. Gerardo Disclaimer: Gerardo Disclaimer: This electronic medical record was generated, in whole or in part, using a voice recognition dictation system. Departure Departure Impression: Primary Impression: Medication refill Disposition: HOME / SELF CARE / HOMELESS Condition: STABLE Referrals: NO PCP (PCP) Patient Instructions: Medication Refill, Emergency Department Scripts Albuterol Sulfate (PROAIR HFA INHALER) 8.5 Gm Hfa.aer.ad 2 PUFF IH PRN Q4-6HRS PRN for wheezing, #1 INHALER 0 Refills Prov: NEVIN WELLS DO 08/22/21 NEVIN WELLS DO Aug 22, 2021 15:49
[2021-08-22] MEDS ORDERED: ALBU2.5V8 IH (15:53)
== END 2021-08-22 16:08 | disposition home or self-care (01) ==
LOC: ER 14:50
DX: R06.02 Shortness of breath (principal); Z76.0 Encounter for issue of repeat prescription; R05.9 Cough, unspecified; J45.909 Unspecified asthma, uncomplicated; F17.200 Nicotine dependence, unspecified, uncomplicated; Z91.041 Radiographic dye allergy status
CPT/HCPCS: 99281